=== PATIENT | male | born 1990 | race Native Hawaiian/Other Pacific Islander ===

== ENCOUNTER 2017-05-22 00:21 | Inpatient (IN) | payer OTHER ==
[~2017-05-22] VITALS: Ht 182.9 cm; Wt 81.6 kg
[2017-05-22] VITALS (27 sets, daily range): BP systolic 110–155; BP diastolic 50–91; TEMP 97.6–98.7; Ht 182.9 cm; Wt 81.6 kg
[2017-05-22 01:05] LABS: PLATELET COUNT 332 K/uL (142-355)
[2017-05-22 01:11] LABS: POTASSIUM 3.4 mmol/L (3.6-5.2); SODIUM 138 mmol/L (136-145)
[2017-05-22 01:13] LABS: PARTIAL THROMBOPLASTIN TIME 23.6 SECONDS (24.5-33.6)
[2017-05-23] VITALS (12 sets, daily range): BP systolic 123–143; BP diastolic 66–88; TEMP 98–99
[2017-05-24] VITALS (11 sets, daily range): BP systolic 122–140; BP diastolic 70–91; TEMP 96–98.9
[2017-05-25] VITALS (12 sets, daily range): BP systolic 108–186; BP diastolic 51–90; TEMP 98–98.7
[2017-05-26] VITALS (10 sets, daily range): BP systolic 107–131; BP diastolic 52–84; TEMP 97.8–98.9
== END 2017-05-26 19:40 | disposition other institution (70) | DRG 918 ==
LOC: ED 00:21 → ICU 02:52
PROVIDERS: ADMIT Specialist
DX: T50.992A Poisoning by other drugs, medicaments and biological substances, intentional self-harm, initial encounter (principal); Y92.89 Other specified places as the place of occurrence of the external cause; F41.8 Other specified anxiety disorders
CPT/HCPCS: 36415; 51702; 80053; 80307; 80320; 80329; 82150; 83690; 84443; 85027; 85610; 85730; 96360; 96361; 96374; 96375; 96376; 99284; G0479; J2405; J3490